=== PATIENT | female | born 1950 | race Caucasian/White ===

== ENCOUNTER → 2017-03-22 09:27 | Outpatient (CLI) | payer MEDICAID ==
[~2017-03-22 09:27] MED LIST: ABILIFY10 MG PO; ATARAX 25 MG TA25 MG PO; CALTRATE 600 M600 M1 PO; HYDROCHLOROTH12.5 M1 PO; OMEPRAZOLE CAP 20M; PEPCID20 MG PO; PRINIVIL20 MG PO; SOMA350 MG PO; SYNTHROID25 MCG PO; ULTRAM50 MG PO; VISTARIL50 MG PO; VITAMIN D3400 UNI1 PO
[2017-03-22 10:36] VITALS: BP 131/74; Ht 162.6 cm
== END | disposition home or self-care (01) ==
LOC: D.OPS 09:27
DX: M81.0 Age-related osteoporosis without current pathological fracture (principal)

== ENCOUNTER 2017-09-26 09:36 | Outpatient (CLI) | payer MEDICAID ==
[~2017-09-26] VITALS: Ht 162.6 cm; Wt 48.2 kg
[2017-09-26 10:24] VITALS: BP 136/90; Ht 162.6 cm; Wt 48.2 kg
--- NOTE | 2017-09-26 10:43 | NUR ---
1043 PT STATES SHE HAS HAD THIS BEFORE WATER SERVED, STATES HAS ANOTHER APPT. TO GET TO AND LEAVES AMB.
== END 2017-09-26 10:43 | disposition home or self-care (01) ==
LOC: D.OPS 09:36
DX: M81.0 Age-related osteoporosis without current pathological fracture (principal)

== ENCOUNTER 2018-05-10 12:30 | Outpatient (CLI) | payer MEDICARE, BC ==
[~2018-05-10] VITALS: Ht 162.6 cm; Wt 47.7 kg
[2018-05-10 12:58] VITALS: BP 135/77; Ht 162.6 cm; Wt 47.7 kg
== END 2018-05-10 13:35 | disposition home or self-care (01) ==
LOC: D.OPS 12:30
DX: M81.0 Age-related osteoporosis without current pathological fracture (principal)

== ENCOUNTER → 2018-07-18 16:22 | Outpatient (CLI) | payer MEDICARE, BC ==
[2018-05-10 12:58] VITALS: BMI 18.0
== END | disposition home or self-care (01) ==
LOC: D.MAMMO 09:15
DX: Z12.31 Encounter for screening mammogram for malignant neoplasm of breast (principal)

== ENCOUNTER 2018-11-14 12:46 | Outpatient (CLI) | payer MEDICARE, BC ==
[~2018-11-14] VITALS: Ht 162.6 cm; Wt 47.7 kg
[2018-11-14 13:15] VITALS: BP 122/66; Ht 162.6 cm; Wt 47.7 kg
== END 2018-11-14 13:30 | disposition home or self-care (01) ==
LOC: D.OPS 12:46
DX: M81.0 Age-related osteoporosis without current pathological fracture (principal)

== ENCOUNTER → 2019-02-18 06:57 | Outpatient (CLI) | payer MEDICARE, BC ==
[2018-11-14 13:15] VITALS: BMI 18.0
== END | disposition home or self-care (01) ==
LOC: D.MRI 02-15 11:00
PROVIDERS: ATTEND Family Medicine
DX: M50.30 Other cervical disc degeneration, unspecified cervical region (principal)

== ENCOUNTER 2019-05-15 13:31 | Outpatient (CLI) | payer MEDICARE, BC ==
[~2019-05-15] VITALS: Ht 162.6 cm; Wt 49.1 kg
[2019-05-15 14:00] VITALS: BP 161/102; Ht 162.6 cm; Wt 49.1 kg
--- NOTE | 2019-05-15 14:33 | NUR ---
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 PT STATES SHE DOES THIS EVERYTIME AND THEN IT RETURNS TO NORMAL ONCE SHE GETS HOME. PT ENCOURAGED TO TAKE B/P AFTER RETURNING HOME AND TO NOTIFY HER DOCTOR IF IT REMAINS UP. PT STATES THAT SHE WILL DO THIS.
== END 2019-05-15 14:27 | disposition home or self-care (01) ==
LOC: D.OPS 13:31
PROVIDERS: ATTEND Family Medicine
DX: M81.0 Age-related osteoporosis without current pathological fracture (principal)

== ENCOUNTER → 2019-10-01 08:30 | Outpatient (CLI) | payer MEDICARE, BC ==
[2019-05-15 14:00] VITALS: BMI 18.5
== END | disposition home or self-care (01) ==
LOC: D.MAMMO 08:30
PROVIDERS: ATTEND Nurse Practitioner Family
DX: Z12.31 Encounter for screening mammogram for malignant neoplasm of breast (principal)

== ENCOUNTER → 2019-10-11 09:26 | Outpatient (CLI) | payer MEDICARE, BC ==
[2019-05-15 14:00] VITALS: BMI 18.5
--- NOTE | ~2019-10-11 | EC ---
PATIENT:NAOMIE CHUNG DATE OF SERVICE: 10/11/19 SEX: F MEDICAL RECORD: [id number] DATE OF : 54 [facility] AGE OF PATIENT: 68 ADMISSION DATE: 10/11/19 REFERRING PHYSICIAN: INTERPRETING PHYSICIAN: NARENDRA DANIEL MD ECHOCARDIOGRAM REPORT ECHO CHARGES 4 ECHO COMPLETE Date: 10/11/19 CLINICAL DIAGNOSIS: ANGINA/HTN/ABNORMAL EKG/LBBB/ MURMUR ECHOCARDIOGRAPHIC MEASUREMENTS (adult normal given) AC root (d.<3.7cm) 2.9 cm LV Septum d (<1.2 cm> 1.0 cm Valve Excursion 1.4 cm LV Septum (systole) 1.7 cm Left Atria (s.<4.0cm> 3.3 cm LVPW d(<1.2cm) 1.0 cm RV (d.<2.3cm) 2.1 cm LVPW (sytole) 1.4 cm LV diastole(<5.6CM) 4.8 cm MV E-F(>70mm/sec) cm LV systole 2.9 cm LVOT Diameter 1.8 cm MV exc.(>10mm) cm Est.ejection fraction (50-75%) % DOPPLER: LVIT cm/sec A 82.0 cm/sec E 52.0 cm/sec LA cm/sec RVSP 26.0 mmHg LVOT 108 cm/sec AOP1/2T m/s Asc. Ao 152 cm/sec RVOT 76.0 cm/sec RA cm/sec PA 95.0 cm/sec AV Gradient Peak 9.3 mmHg AV Mean 5.0 mmHg AV Area 1.9 cm MV Gradient Peak 3.8 mmHg MV Mean 1.3 mmHg MV Area cm COMMENTS: OP - HC [place]: 1 EDITA TUSTIN Histologic Aide: 3 Dr. Cullen TAPE# PACS Pericardial Effusion N DATE OF SERVICE: Adequate 2D, color flow, spectral Doppler, and M-mode. No LVH. LV internal dimensions are normal. Wall motion is normal. EF is greater than or equal to 55%. Aortic valve is sclerosed without stenosis by Doppler interrogation. Left atrium is normal at 3.3 cm. Mitral valve shows no prolapse. Trace MR. Right-sided chambers are grossly normal. Trace TR. TRANSINT:[id number] Voice Confirmation ID: [id number] DOCUMENT ID: [id number] ECHOCARDIOGRAM REPORT [id number] NAOMIE CHUNG GREGORY A MD CC: [id number] DICTATION DATE: 10/14/191403 UNDERGROUND HEAVY EQUIPMENT OPERATOR: 10/14/192046 DEP CLI 10/11/19 [place] [id number]
== END | disposition home or self-care (01) ==
LOC: D.HCCECHO 09:26
PROVIDERS: ATTEND Internal Medicine Interventional Cardiology
DX: I10 Essential (primary) hypertension (principal)

== ENCOUNTER → 2019-10-17 08:01 | Outpatient (CLI) | payer MEDICARE, BC ==
[2019-05-15 14:00] VITALS: BMI 18.5
--- NOTE | 2019-10-21 11:13 | ST ---
PATIENT:NAOMIE CHUNG MEDICAL RECORD: [id number] SEX: F LOCATION:[facility] ORDER #: ADMISSION DATE: 10/17/19 AGE OF PATIENT: 68 REFERRING PHYSICIAN: INTERPRETING PHYSICIAN: CAN VILLALTA MD DATE OF SERVICE: 10/17/2019 PROCEDURE: Nuclear stress test INDICATION: Angina, hypertension, hyperlipidemia, abnormal ECG. He was exercised on standard Lexiscan protocol with 33 mCi of sestamibi injected at peak stress, 11 mCi used previously for rest images. FINDINGS: Gated SPECT reveals preserved ejection fraction at 69% with good wall motion and thickening and brightening throughout all segments. SPECT imaging Cardiolite was used as myocardial fusion agent. There is homogeneous uptake throughout all segments at rest and stress with no evidence of inducible ischemia or previous infarction. OVERALL IMPRESSION: 1. This is a normal nuclear stress test with no evidence of inducible ischemia or previous infarction. 2. Gated SPECT reveals a preserved ejection fraction at 69%. In this patient with ongoing symptomatology, the current scan does not suggest the presence of hemodynamically significant coronary artery disease. Evaluate noncardiac etiology of chest pain. TRANSINT:[id number] Voice Confirmation ID: [id number] DOCUMENT ID: [id number] CAN VILLALTA MD at 1113 CC: JUANITA REZA APN [id number] DICTATION DATE: 10/18/19 1302 CONVERSION DEVELOPER: 10/18/192003 DEP CLI 10/17/19 [place] [id number] [place] [address]
== END | disposition home or self-care (01) ==
LOC: D.HCCARDIO 08:01
PROVIDERS: ATTEND Internal Medicine Interventional Cardiology
DX: I20.9 Angina pectoris, unspecified (principal)

== ENCOUNTER 2020-05-21 12:30 | Outpatient (CLI) | payer MEDICARE, BC ==
[~2020-05-21] VITALS: Ht 162.6 cm; Wt 46.8 kg
[2020-05-21 12:48] VITALS: BP 111/72; Ht 162.6 cm; Wt 46.8 kg
== END 2020-05-21 13:07 | disposition home or self-care (01) ==
LOC: D.OPS 12:30
PROVIDERS: ATTEND Nurse Practitioner Family
DX: M81.0 Age-related osteoporosis without current pathological fracture (principal)

== ENCOUNTER → 2020-06-19 08:27 | Outpatient (CLI) | payer MEDICARE, BC ==
[2020-05-21 12:48] VITALS: BMI 17.7
== END | disposition home or self-care (01) ==
LOC: D.MRI 06-15 11:30
PROVIDERS: ATTEND Nurse Practitioner Family
DX: M48.02 Spinal stenosis, cervical region (principal)

== ENCOUNTER 2020-12-23 11:40 | Outpatient (CLI) | payer MEDICARE, BC ==
[~2020-12-23] VITALS: Ht 165.1 cm; Wt 47.7 kg
[2020-12-23 12:30] VITALS: BP 166/91; Ht 165.1 cm; Wt 47.7 kg
== END 2020-12-23 12:43 | disposition home or self-care (01) ==
LOC: D.OPS 11:40
PROVIDERS: ATTEND Family Medicine
DX: M81.0 Age-related osteoporosis without current pathological fracture (principal)

== ENCOUNTER 2021-01-12 11:30 | Outpatient (CLI) | payer MEDICARE, BC ==
[2020-12-23 12:30] VITALS: BMI 17.5
== END 2021-01-12 12:00 | disposition home or self-care (01) ==
LOC: D.MAMMO 11:30
PROVIDERS: ATTEND Nurse Practitioner Family
DX: Z12.31 Encounter for screening mammogram for malignant neoplasm of breast (principal)